=== PATIENT | female | born 2005 | race Caucasian/White ===

== ENCOUNTER 2023-12-25 08:08 | Day surgery (SDC) | payer BC, OTHER ==
[2023-12-23 08:54] VITALS: BMI 31.7
[2023-12-25] MEDS ORDERED: PROPOFOL 20 ML ONE (10:14)
[2023-12-25] MEDS ORDERED: Oxymetazoline HCl 0.05% (30 ML BOT) ONE (10:34)
[2023-12-25] MEDS ORDERED: Ferric Subsulfate 8 ML TOPICAL SOLN ONE (10:35)
[2023-12-25] MEDS ORDERED: EPINEPHrine 1 MG/ML VIAL ONE (10:35)
[2023-12-25] MEDS ORDERED: Lidocaine 1% (PF) 30 ML VIAL ONE (10:35)
[2023-12-25] MEDS ORDERED: fentaNYL PF 100 MCG/2 ML SYRINGE ONE ×3 (10:37→12:29)
[2023-12-25] MEDS ORDERED: Ondansetron PF 4 MG/2 ML Vial ONE (10:37)
[2023-12-25] MEDS ORDERED: Dexamethasone 20 MG/5 ML VIAL ONE (10:37)
[2023-12-25] MEDS ORDERED: Midazolam HCl 2 mg/2 ml Vial ONE (11:11)
[2023-12-25] MEDS ORDERED: Rocuronium Bromide 10 MG/ML (10ML VIAL) ONE (11:27)
[2023-12-25] MEDS ORDERED: methylPREDNISolone Acetate 40 mg/ml Vial ONE (11:56)
[2023-12-25] MEDS ORDERED: SUGAMMADEX SODIUM 200 MG/2 ML VIAL ONE (12:13)
[2023-12-25] MEDS ORDERED: fentaNYL 50 mcg/mL 1 mL Vial ONE (12:21)
[2023-12-25] MEDS ORDERED: HYDROmorphone 0.5 MG/0.5 ML SYRINGE ONE (13:00)
[2023-12-25] MEDS ORDERED: Promethazine HCl 25 MG/ML VIAL ONE (13:02)
[2023-12-25] MEDS ORDERED: Meperidine HCl/PF 25 MG (1 mL) VIAL ONE (13:12)
[2023-12-25] MEDS ORDERED: diphenhydrAMINE 50 MG/ML VIAL ONE (13:27)
[2023-12-25] MEDS ORDERED: Hydrocodone-Acetamin 15 ML UDCUP ONE (14:49)
== END 2023-12-25 15:23 | disposition home or self-care (01) ==
LOC: SDC 08:08
PROVIDERS: ATTEND Otolaryngology Plastic Surgery within the Head & Neck
PROC: 09BR8ZZ Excision of Left Maxillary Sinus, Via Natural or Artificial Opening Endoscopic (ICD-10-PCS; principal; 2023-12-25)
PROC: 0CBPXZZ Excision of Tonsils, External Approach (ICD-10-PCS; principal; 2023-12-25)
PROC: 09BU8ZZ Excision of Right Ethmoid Sinus, Via Natural or Artificial Opening Endoscopic (ICD-10-PCS; principal; 2023-12-25)
PROC: 09BS8ZZ Excision of Right Frontal Sinus, Via Natural or Artificial Opening Endoscopic (ICD-10-PCS; principal; 2023-12-25)
PROC: 09SM4ZZ Reposition Nasal Septum, Percutaneous Endoscopic Approach (ICD-10-PCS; principal; 2023-12-25)
PROC: 09BV8ZZ Excision of Left Ethmoid Sinus, Via Natural or Artificial Opening Endoscopic (ICD-10-PCS; principal; 2023-12-25)
PROC: 09BL8ZZ Excision of Nasal Turbinate, Via Natural or Artificial Opening Endoscopic (ICD-10-PCS; principal; 2023-12-25)
PROC: 0CBQ0ZZ Excision of Adenoids, Open Approach (ICD-10-PCS; principal; 2023-12-25)
PROC: 09BQ8ZZ Excision of Right Maxillary Sinus, Via Natural or Artificial Opening Endoscopic (ICD-10-PCS; principal; 2023-12-25)
PROC: 09BT8ZZ Excision of Left Frontal Sinus, Via Natural or Artificial Opening Endoscopic (ICD-10-PCS; principal; 2023-12-25)
PROC: 09BW8ZZ Excision of Right Sphenoid Sinus, Via Natural or Artificial Opening Endoscopic (ICD-10-PCS; principal; 2023-12-25)
PROC: 09BX8ZZ Excision of Left Sphenoid Sinus, Via Natural or Artificial Opening Endoscopic (ICD-10-PCS; principal; 2023-12-25)
DX: J34.2 Deviated nasal septum (principal); J34.3 Hypertrophy of nasal turbinates; J32.4 Chronic pansinusitis; J35.3 Hypertrophy of tonsils with hypertrophy of adenoids; J35.01 Chronic tonsillitis; J30.89 Other allergic rhinitis
CPT/HCPCS: 88304; J0171; J1030; J1100; J1170; J1200; J2001; J2175; J2250; J2405; J2550; J2704; J3010

== ENCOUNTER 2024-04-26 01:00 | Emergency (ER) | payer OTHER | END 2024-04-26 02:21 | disposition left against medical advice (07) | LOC: ERS 01:00 | DX: Z53.21 Procedure and treatment not carried out due to patient leaving prior to being seen by health care provider (principal) ==